=== PATIENT | male | born 1970 | race African-American/Black ===

== ENCOUNTER 2023-04-07 09:55 | Inpatient (IN) | payer OTHER ==
[2023-04-07 11:52] VITALS: BMI 18.8
[2023-04-07] MEDS ORDERED: IBUPROFEN 600 MG TABLET (FP) PO PRN (13:16)
[2023-04-07] MEDS ORDERED: guaiFENesin 600 MG TABLET.ER (FP) PO PRN (13:16)
[2023-04-07] MEDS ORDERED: IBUPROFEN 400 MG TABLET (FP) PO PRN (13:16)
[2023-04-07] MEDS ORDERED: POLYETHYLENE GLYCOL (HEALTHYLAX) 3350 17 GM PACKET PO PRN (13:16)
[2023-04-07] MEDS ORDERED: NALOXONE HCL (KLOXXADO) 8 MG SPRAY NS PRN (13:16)
[2023-04-07] MEDS ORDERED: BISMUTH SUBSALICYLATE 524 MG/30 ML PO PRN (13:16)
[2023-04-07] MEDS ORDERED: BENZOCAINE/MENTHOL (CHLORASEPTIC ) LOZENGE MM PRN (13:16)
[2023-04-07] MEDS ORDERED: hydrOXYzine PAMOATE 25 MG CAPSULE (FP) PO PRN (13:16)
[2023-04-07] MEDS ORDERED: ONDANSETRON *ODT* 4 MG TABLET SL PRN (13:16)
[2023-04-07] MEDS ORDERED: chlordiazePOXIDE HCL 25 MG CAPSULE PO PRN (13:16)
[2023-04-07] MEDS ORDERED: NALOXONE HCL 0.4 MG/ML VIAL IM PRN (13:16)
[2023-04-07] MEDS ORDERED: LOPERAMIDE HCL 2 MG CAPSULE PO PRN (13:16)
[2023-04-07] MEDS ORDERED: MAG HYDROX/AL HYDROX/SIMETH 30 ML UNIT-DOSE CUP PO PRN (13:16)
[2023-04-07] MEDS ORDERED: MAGNESIUM HYDROX 2400MG/30ML ORAL SUSPENSION 30 ML CUP PO PRN (13:16)
[2023-04-07] MEDS ORDERED: BENZONATATE 200 MG CAPSULE PO PRN (13:16)
[2023-04-07] MEDS ORDERED: DICYCLOMINE HCL 10 MG CAPSULE PO PRN (13:16)
[2023-04-07] MEDS ORDERED: ACETAMINOPHEN 325 MG TABLET (FP) PO PRN (13:16)
[2023-04-07] MEDS ORDERED: METHOCARBAMOL 500 MG TABLET PO PRN (13:16)
[2023-04-07] MEDS: cloNIDine HCL 0.1 MG TABLET PO PRN (14:51)
[2023-04-07] MEDS ORDERED: LISINOPRIL 20 MG TABLET PO ONE (15:00)
[2023-04-07] MEDS: chlordiazePOXIDE HCL 25 MG CAPSULE PO SCH ×2 (17:55→23:10)
[2023-04-07] MEDS: THIAMINE HCL 100 MG TABLET (FP) PO SCH (22:58)
[2023-04-07] MEDS: MELATONIN 5 MG TABLETS PO SCH (22:58)
[2023-04-08] MEDS: chlordiazePOXIDE HCL 25 MG CAPSULE PO SCH ×3 (05:19→17:11)
[2023-04-08] MEDS: PRENATAL VITAMINS W/ FOLIC ACID TABLET (FP) PO SCH (10:02)
[2023-04-08] MEDS: LISINOPRIL 20 MG TABLET PO SCH (10:02)
[2023-04-08] MEDS: cloNIDine HCL 0.1 MG TABLET PO PRN (17:10)
[2023-04-08 18:00] LABS: HEMOGLOBIN 13.3 GM/dL (11.7-16.9); MCH 30.8 pg (25.7-33.7); MCHC 32.6 g/dl (32.0-35.9); MEAN CELL VOLUME 94.7 fl (80-96); MEAN PLT VOLUME 9.4 fl (7.5-11.1); PLATELET COUNT 253 10^3/uL (134-434); RBC 4.33 M/mm3 (4.00-5.60); RDW 13.8 % (11.9-15.9); WHITE BLOOD COUNT 5.5 K/mm3 (4.0-10.0)
[2023-04-08 18:03] LABS: POTASSIUM 4.2 mmol/L (3.5-5.1)
[2023-04-08 18:06] LABS: ALBUMIN 3.4 g/dl (3.4-5.0); CALCIUM 8.1 mg/dL (8.5-10.1)
[2023-04-08 18:07] LABS: BLOOD UREA NITROGEN 14.2 mg/dL (7-18)
[2023-04-08 18:10] LABS: CREATININE 1.1 mg/dL (0.55-1.3)
[2023-04-08 18:11] LABS: BILIRUBIN,TOTAL 0.8 mg/dL (0.2-1); TOT PROT 6.8 g/dl (6.4-8.2)
[2023-04-08 18:37] LABS: URINE APPEARANCE Error; URINE BILIRUBIN NEGATIVE (NEGATIVE); URINE COLOR YELLOW; URINE GLUCOSE (UA) NEGATIVE (NEGATIVE); URINE KETONE NEGATIVE (NEGATIVE); URINE LEUK ESTERASE NEGATIVE (NEGATIVE); URINE NITRITE NEGATIVE (NEGATIVE); URINE PROTEIN NEGATIVE (NEGATIVE); URINE UROBILINOGEN 0.2 mg/dL (0.2-1.0)
[2023-04-08] MEDS ORDERED: diazePAM 5 MG TABLET PO PRN (21:40)
[2023-04-08] MEDS ORDERED: diazePAM 5 MG TABLET PO SCH (23:00)
[2023-04-08] MEDS: MELATONIN 5 MG TABLETS PO SCH (23:12)
[2023-04-08] MEDS: THIAMINE HCL 100 MG TABLET (FP) PO SCH (23:12)
[2023-04-09] MEDS ORDERED: chlordiazePOXIDE HCL 25 MG CAPSULE PO SCH (05:00)
[2023-04-09] MEDS: diazePAM 5 MG TABLET PO SCH ×4 (05:51→22:23)
[2023-04-09] MEDS: cloNIDine HCL 0.1 MG TABLET PO PRN (07:56)
[2023-04-09] MEDS: PRENATAL VITAMINS W/ FOLIC ACID TABLET (FP) PO SCH (10:22)
[2023-04-09] MEDS: LISINOPRIL 20 MG TABLET PO SCH (10:22)
[2023-04-09] MEDS ORDERED: LISINOPRIL 10 MG TABLET PO ONE (17:05)
[2023-04-09] MEDS: THIAMINE HCL 100 MG TABLET (FP) PO SCH (22:22)
[2023-04-09] MEDS: MELATONIN 5 MG TABLETS PO SCH (22:22)
[2023-04-10] MEDS ORDERED: chlordiazePOXIDE HCL 10 MG CAPSULE PO PRN
[2023-04-10] MEDS ORDERED: chlordiazePOXIDE HCL 10 MG CAPSULE PO SCH (05:00)
[2023-04-10] MEDS: diazePAM 5 MG TABLET PO SCH ×3 (05:57→18:00)
[2023-04-10] MEDS: LISINOPRIL 20 MG TABLET PO SCH (09:50)
[2023-04-10] MEDS: PRENATAL VITAMINS W/ FOLIC ACID TABLET (FP) PO SCH (09:50)
[2023-04-10] MEDS: THIAMINE HCL 100 MG TABLET (FP) PO SCH (22:42)
[2023-04-10] MEDS: MELATONIN 5 MG TABLETS PO SCH (22:42)
[2023-04-11] MEDS ORDERED: chlordiazePOXIDE HCL 10 MG CAPSULE PO SCH (05:00)
[2023-04-11] MEDS ORDERED: diazePAM 5 MG TABLET PO ONE (06:00)
[2023-04-11 06:39] VITALS: TEMP 97.8
[2023-04-11] MEDS: PRENATAL VITAMINS W/ FOLIC ACID TABLET (FP) PO SCH (09:10)
[2023-04-11] MEDS: LISINOPRIL 20 MG TABLET PO SCH (09:10)
[2023-04-11 09:56] VITALS: BP 155/100; PULSE 63; RESP 18
[2023-04-12] MEDS ORDERED: chlordiazePOXIDE HCL 10 MG CAPSULE PO ONE (05:00)
== END 2023-04-11 09:18 | disposition home or self-care (01) | DRG 774 ==
LOC: YASAS 09:55 → Y3N 13:38
PROVIDERS: ADMIT Allergy & Immunology; ATTEND Surgery
PROC: HZ2ZZZZ Detoxification Services for Substance Abuse Treatment (ICD-10-PCS; principal; 2023-04-07)
DX: F10.230 Alcohol dependence with withdrawal, uncomplicated (principal); F14.20 Cocaine dependence, uncomplicated; F12.20 Cannabis dependence, uncomplicated; F17.210 Nicotine dependence, cigarettes, uncomplicated; I10 Essential (primary) hypertension; Z59.00 Homelessness unspecified
CPT/HCPCS: 36415; 80053; 80307; 81003; 85027; 86780; 87635; 93005; 93010